=== PATIENT | male | born 1960 | race Caucasian/White ===

== ENCOUNTER 2019-06-12 12:32 | Inpatient (IN) | payer OTHER ==
[~2019-06-12] VITALS: Ht 190.5 cm; Wt 89.8 kg
--- NOTE | ~2019-06-12 | CON ---
[facility] [address] [place] [address] CONSULTATION Name: ARIADNA OGLESBY Room: [address] IN M.R.#: [id number] Admission: 06/12/19 Attend Phys: Mars Tejada Discharge: Date of : 58 Report #: [id number] THIS REPORT FOR: //name// cc: Jonnathan Mark MD, David L. MD ~ THIS REPORT FOR: //name// CC: Jonnathan Monet DATE OF SERVICE: 06/13/2019 HISTORY OF PRESENT ILLNESS: This is a 58-year-old male patient who was seen by me for an episode of fall. He gives me a different history than he has given and recorded in his chart. He gives me a history that he has a longstanding history of sleepwalking. He does not act on his dreams. He said sometime he will talk to his and will not know it. He said he got up and does not remember anything and he tried to walk and he fell down. He did not have any headache. There is some question that he was confused after this episode, but he feels back to his baseline. REVIEW OF SYSTEMS: Indicate that he has a history of sleep walking. Of note, he does have those removed and he basically need spinal cord compression noted. Minor things. We will not need a lumbar only the cervical and without contrast January. His blood pressure has been borderline. Rest of the 14-point review of systems was carried out and was unremarkable. His episodes of parasomnia do become worse when he is under stress. PAST MEDICAL HISTORY: Positive for sleepwalking. FAMILY HISTORY: Unremarkable. SOCIAL HISTORY: He indicates he does not drink alcohol. PHYSICAL EXAMINATION: The patient's examination indicates he is alert, responsive, able to follow simple and complex command. His cranial nerve examinations appear unremarkable. As mentioned above, he feels back to his baseline. He is able to move all 4 extremities. His reflexes are symmetrical. There is no meningeal sign. There is no carotid bruit. Cardiac and respiratory examination is unremarkable. Blood pressure is 167/95, respirations 16, pulse is 75, temperature is 98. LABORATORY DATA: His white count is 9.1. CT was unremarkable. IMPRESSION: This patient appeared to have parasomnia. I suspect that is the cause of the patient's problem. [place] [address] CONSULTATION Name: TAB OGLESBYRY Miguelina Room: [address] IN [facility]#: [id number] Admission: 06/12/19 Attend Phys: Mars Tejada Discharge: Date of : 58 Report #: [id number] because of the protocol, but that needs to be done as an outpatient. He needs to go to one of the sleep specialist who is a neurologist because of his problem appeared to be parasomnias. I recommended that he makes that appointment as soon as he is dismissed. Before he is dismissed, he needs an MRI and MRA, which is already scheduled and I will get an EEG done at the same time. Thank you very much for this referral and if you have any question, please feel free to contact me. By: [id number] [id number] Ramon MD /nt
--- NOTE | ~2019-06-12 | EEG ---
[address] [address] EEG STUDY REPORT Name: ARIADNA OGLESBY Room: [address]R#: [id number] Admission: 06/12/19 Attend Phys: Mars Tejada Discharge: 06/13/19 Date of : 58 Report #: [id number] THIS REPORT FOR: //name// CC: Jonnathan Monet DATE OF SERVICE: 06/12/2019 This patient had an episode of confusion and maybe fall. He does have parasomnias in the past. The patient's background activity is about 11 Hz and 40 microvolt. The patient went to sleep and that is associated with bilateral slowing and vertex sharp waves. Photic stimulation is unremarkable. Throughout the record, no active epileptiform activity was noticed. IMPRESSION: This patient's EEG is unremarkable. Thank you very much for this referral. By: 1152 [id number] Ramon MD /nt
[~2019-06-12 12:32] MED LIST: IBUPROFEN 800800 M1 PO; MELOXICAM7.5 MG PO; NORCO 5-325 TA1 EACH PO; PROTONIX40 M2 PO
[2019-06-12 12:40] VITALS: BP 143/90
[2019-06-12 13:40] LABS: ABSOLUTE BASOPHILS 0.1 thou/uL (0.0-0.2); ABSOLUTE EOSINOPHILS 0.2 thou/uL (0.0-0.7); ABSOLUTE LYMPHOCYTES 2.2 thou/uL (0.8-5.3); ABSOLUTE MONOCYTES 0.6 thou/uL (0.0-1.2); EOSINOPHILS 2.4 %; HEMATOCRIT 42.6 % (42.0-52.0); HEMOGLOBIN 15.1 gm/dL (14.0-18.0); LYMPHOCYTES 27.2 %; MCH 31.6 pg (26.0-34.0); MCHC 35.4 g/dL (28.0-37.0); MCV 89.1 fL (80.0-100.0); MONOCYTES 7.8 %; MPV 8.2 fl. (7.2-11.1); NUCLEATED RBCS 0 /100WBC; PLATELET COUNT* 247 thou/uL (150-400); POLYS 61.6 %; RBC 4.78 mil/uL (4.50-6.00); RDW-CV 12.7 % (10.5-14.5); WBC 8.2 thou/uL (4.0-11.0)
[2019-06-12 13:43] LABS: CALCIUM 8.4 mg/dL (8.5-10.1); CREATININE 1.1 mg/dL (0.6-1.3); POTASSIUM 4.3 mmol/L (3.5-5.1)
[2019-06-12 13:45] LABS: APTT 26.7 Seconds (25.0-31.3); INR 1.1; PROTIME 11.4 Seconds (9.20-11.50)
[2019-06-12 13:48] LABS: ALBUMIN 3.7 g/dL (3.4-5.0); TOTAL BILIRUBIN 0.4 mg/dL (<0.1-1.0); TOTAL PROTEIN 7.3 g/dL (6.4-8.2)
[2019-06-12 14:28] LABS: URINE BILIRUBIN NEGATIVE (Negative); URINE BLOOD NEGATIVE (Negative); URINE CLARITY CLEAR; URINE COLOR YELLOW; URINE GLUCOSE-RANDOM NEGATIVE (Negative); URINE KETONES NEGATIVE (Negative); URINE LEUKOCYTES-REFLEX NEGATIVE (Negative); URINE NITRITE-REFLEX NEGATIVE (Negative); URINE PROTEIN NEGATIVE (Negative); URINE SPECIFIC GRAVITY <= 1.005 (1.005-1.030); URINE UROBILINOGEN 0.2 E.U./dl (0.2-1.0)
[2019-06-12 14:35] LABS: AMP/METHAMP Negative (Negative); BARBITURATES Negative (Negative); BENZODIAZEPINES POSITIVE (Negative); COCAINE Negative (Negative); METHADONE Negative (Negative); OPIATES Negative (Negative); PCP Negative (Negative); THC Negative (Negative)
--- NOTE | 2019-06-12 15:26 | EKG ---
[place] [address] ELECTROCARDIOGRAM REPORT Name: ARIADNA OGLESBY Room: [facility]9 ADM IN [facility]#: [id number] Admission: 06/12/19 Attend Phys: Rusty Monet Discharge: Date of : 58 Date of Service: 06/12/19 1349 Report #: [id number] THIS REPORT FOR: //name// [place] [facility] Test Date: 2019-06-12 Test Time: 13:49:44 Pat Name: ARIADNA OGLESBY Department: Room: [facility] Gender: M Manager [employer]: KHUSHI : 1960 Requested By: Gaudencio Matson Order Number: [id number] MD: Jonanthan Grace Measurements Intervals [place] Rate: 61 P: 34 HI: 158 QRS: -46 QRSD: 104 T: 24 QT: 413 QTc: 416 Interpretive Statements Sinus rhythm Ventricular premature complex Left anterior fascicular block Consider anterior infarct No previous ECG available for comparison Electronically Signed On 06-12-2019 15:25:37 CDT by Jonnathan Grace [email or web address] <ELECTRONICALLY SIGNED> By: Jonnathan Grace MD, [facility] 06/12/19 1525 1349 1349 Jonnathan Grace MD, [facility] /EPI
--- NOTE | 2019-06-12 15:27 | EKG ---
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
--- NOTE | 2019-06-12 17:59 | NUR ---
PT'S SPOUSE, THALIA OGLESBY, IS LEAVING THE HOSPITAL AT THIS TIME AND UNDERSTANDS THERE ARE NO VISITORS ALLOWED IN THE HOSPITAL AT THIS TIME. SHE STATES SHE WILL CALL TOMORROW TO SPEAK WITH THE PATIENT'S INPATIENT NURSE FOR AN UPDATE ON PATIENT STATUS AND PLAN OF CARE. PT GIVES PERMISSION FOR HIS SPOUSE TO RECEIVE INFORMATION ON STATUS AND PLAN OF CARE.
[2019-06-12 18:47] VITALS: BP 139/90
[2019-06-12 18:50] VITALS: BP 143/83
--- NOTE | 2019-06-12 19:10 | NUR ---
RECEIVED REPORT FROM TONYA IN ER. PT ARRIVED TO TELE FLOOR AROUND 1850. VITALS OBTAINED, CHARTED. OPTOMETRIST/PRACTICE OWNER PLACED. PT ORIENTED TO ROOM, BED AND CALL LIGHT. COMMUNICATES UNDERSTANDING. BED ALARM TURNED ON. REPORT GIVEN TO NIGHT RN - NIGHT RN TO COMPLETE ADMISSION. CALL LIGHT IS WITHIN REACH.
[2019-06-12 20:00] VITALS: BP 138/86
[2019-06-13 00:40] VITALS: BP 151/93
--- NOTE | 2019-06-13 02:50 | NUR ---
PT ALERT ORIENTED. PTS SPOUSE CALLED TO CHECK ON PT. PT'S SPOUSE ASKED IF SHE COULD COME UP TO SEE PT. SPOUSE MADE AWARE NO VISITORS AT THIS TIME DUE TO COVID-19. NIHSS 2. NO CHANGE FROM PREVIOUS NIHSS. TELEMETRY SHOWS SR. ON RA. AMBULATES TO BR STAND BY ASSIST STEADY GAIT. WCTM
[2019-06-13 04:40] LABS: ABSOLUTE BASOPHILS 0.1 thou/uL (0.0-0.2); ABSOLUTE EOSINOPHILS 0.2 thou/uL (0.0-0.7); ABSOLUTE LYMPHOCYTES 2.7 thou/uL (0.8-5.3); ABSOLUTE MONOCYTES 0.7 thou/uL (0.0-1.2); ABSOLUTE NEUTROPHILS 5.4 thou/uL (1.6-8.1); BASOPHILS 1.1 %; EOSINOPHILS 2.5 %; HEMOGLOBIN 14.8 gm/dL (14.0-18.0); LYMPHOCYTES 29.7 %; MCH 31.6 pg (26.0-34.0); MCV 87.8 fL (80.0-100.0); MONOCYTES 7.2 %; MPV 7.7 fl. (7.2-11.1); NUCLEATED RBCS 0 /100WBC; PLATELET COUNT* 255 thou/uL (150-400); POLYS 59.5 %; RBC 4.67 mil/uL (4.50-6.00); WBC 9.1 thou/uL (4.0-11.0)
[2019-06-13 05:01] VITALS: BP 96/47
[2019-06-13 05:01] LABS: ALBUMIN 3.6 g/dL (3.4-5.0); CALCIUM 8.3 mg/dL (8.5-10.1); CREATININE 1.2 mg/dL (0.6-1.3); POTASSIUM 3.8 mmol/L (3.5-5.1); TOTAL BILIRUBIN 0.8 mg/dL (<0.1-1.0); TOTAL PROTEIN 6.6 g/dL (6.4-8.2)
[2019-06-13 05:12] LABS: CHOLESTEROL 162 mg/dL (<200); HDL CHOLESTEROL 29 mg/dL (>40); LDL CHOLESTEROL 110 mg/dL (<100); TC:HDL 5.6 Ratio (Not establshd); TRIGLYCERIDE 119 mg/dL (<150); VLDL 24 mg/dL (<40)
[2019-06-13 05:18] LABS: SERUM ASSESSMENT Clear
[2019-06-13 07:10] VITALS: BP 167/95
[2019-06-13 12:08] VITALS: BP 139/81
--- NOTE | 2019-06-13 12:38 | NUR ---
WAS ASKED TO CONTACT [facility] RE: POSSIBLE TRANSFER. CALLED AND SPOKE WITH JB/TRSF TEAM. FAXED INFO AND GAVE NUMBER TO DR SEE AND UNIT. AWAIT CALLS BACK AND WILL CONTACT PT/FAMILY THEN
--- NOTE | 2019-06-13 12:51 | NUR ---
INITAL ASSSESSMENT COMPLETED CHARTED. VSS. SR ON MONITOR. NIH=1. REFER TO COMPUTER CHARTING FOR FURTHER DETAILS. HOURLY ROUNDING IN PLACE FOR PT SAFETY. CLWR.
[2019-06-13 14:38] VITALS: BP 139/81
[2019-06-13 15:36] VITALS: BP 139/81
--- NOTE | 2019-06-13 17:39 | NUR ---
PT. DISCHARGED PRIOR TO O.T. EVAL. PLEASE ORDER FURTHER O.T. SERVICES IF NEEDED.
[2019-06-14 02:07] LABS: GLYCOHEMOGLOBIN (HGB A1C) 5.2 % (4.8-5.6)
--- NOTE | 2019-06-14 13:49 | NUR ---
RECEIVED CALL FROM RITCHIERN ASKING THAT CM ASSIST FAMILY WITH GETTING APPT AT FOR F/U WITH DR BAL. CALL TO /THALIA, SHE STATED THAT HER DTR/JUANA WAS ASSISTING HER AND WAS TOLD BY APPT IN APPROXIMATELY 2 MONTHS. CALL TO /[phone], CONFIRMED WITH NEW THAT APPTS ARE FOR END OF JUNE OR FIRST OF JULY. WAS ABLE TO LEAVE VMAIL FOR 'S NURSE TO HELP DETERMINE URGENCY FROM ON F/U. CALLED /THALIA BACK TO UPDATE AND MADE HER AWARE WILL LET HER KNOW WHEN HEAR BACK FROM
== END 2019-06-13 16:30 | disposition home or self-care (01) | DRG 72 ==
LOC: M.ERS 12:32 → M.2W 13:54 → M.TBA-ER 13:54 → M.2W 18:50
PROVIDERS: Emergency Medicine Emergency Medical Services; ADMIT Internal Medicine
DX: G93.40 Encephalopathy, unspecified (principal); K21.9 Gastro-esophageal reflux disease without esophagitis; M19.90 Unspecified osteoarthritis, unspecified site; Z83.3 Family history of diabetes mellitus; Z82.49 Family history of ischemic heart disease and other diseases of the circulatory system; Z79.899 Other long term (current) drug therapy

== ENCOUNTER → 2019-06-19 | Outpatient (CLI) | payer OTHER | LOC: M.CT 06-15 14:41 | DX: I67.1 Cerebral aneurysm, nonruptured (principal) ==